=== PATIENT | male | born 1975 | race Caucasian/White ===

== ENCOUNTER 2017-03-28 21:13 | Emergency (ER) | payer SELFPAY ==
[~2017-03-28] VITALS: Ht 175.3 cm; Wt 72.6 kg
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
--- NOTE | 2017-03-28 22:20 | NUR ---
Dr Watts at bedside.
[2017-03-28] MEDS ORDERED: IV NS 0.9% 1,000 ML ONE (22:29)
[2017-03-28] MEDS ORDERED: ONDANSETRON HCL/PF 4 MG/2 ML VIAL ONE (22:29)
[2017-03-28] MEDS ORDERED: IV SET PRIMARY 1 EA INFUS.SET MC ONE (22:29)
[2017-03-28] MEDS ORDERED: ONDANSETRON HCL/PF 4 MG/2 ML VIAL IVP ONE (22:30)
[2017-03-28] MEDS ORDERED: IV NS 0.9% 1,000 ML BAG IV ONE (22:30)
--- NOTE | 2017-03-28 22:30 | NUR ---
STARTED A SALINE LOCK ON THE LAC G20, BLOOD DRAWN AND SENT TO LAB.
[2017-03-28] MEDS ORDERED: HYDROMORPHONE 1 MG/1 ML DISP.SYRIN ONE (22:36)
--- NOTE | 2017-03-28 22:42 | NUR ---
PATIENT GIVEN WITH DILAUDID 1MG IV ONE TIME PER DR SCHULTZ'S VERBAL ORDER.
[2017-03-28 22:51] LABS: BASOPHILS % (AUTO) 0.3 % (0.0-2.0); EOSINOPHILS # (AUTO) 0.2 /CMM (0.0-0.7); EOSINOPHILS % (AUTO) 3.1 % (0.0-6.0); HEMATOCRIT 47 % (39-51); HEMOGLOBIN 15.8 g/dL (13.5-17.5); LYMPHOCYTES # (AUTO) 3.3 /CMM (0.8-4.8); LYMPHOCYTES % (AUTO) 44.2 % (20.0-44.0); MEAN CORPUSCULAR HEMOGLOBIN 31 PG (26.0-33.0); MEAN CORPUSCULAR HGB CONC 34 g/dl (31.0-36.0); MEAN CORPUSCULAR VOLUME 92 fL (80-96); MONOCYTES # (AUTO) 0.5 /CMM (0.1-1.30); MONOCYTES % (AUTO) 7.1 % (2.0-12.0); NEUTROPHILS # (AUTO) 3.4 /CMM (1.8-8.9); NEUTROPHILS % (AUTO) 45.3 % (43.0-81.0); PLATELET COUNT (AUTO) 148 /CMM (150-450); RDW COEFFICIENT OF VARIATION 12.7 (11.5-15.0); RED BLOOD CELL COUNT(AUTO) 5.05 MIL/uL (4.5-6.0); WHITE BLOOD COUNT (AUTO) 7.4 K/uL (4.3-11.0)
[2017-03-28] MEDS ORDERED: HYDROMORPHONE 1 MG/1 ML DISP.SYRIN IV ONE (23:00)
[2017-03-28 23:02] LABS: CALCIUM, SERUM 9.1 mg/dL (8.5-10.1); INR 0.98 (0.87-1.13); POTASSIUM 3.8 mmol/L (3.5-5.1); PROTHROMBIN TIME 10.5 SECS (9.5-12.7)
--- NOTE | 2017-03-29 01:09 | NUR ---
IV removed. Catheter intact and site benign. Pressure and 4x4 applied to site. No bleeding noted. Patient discharged to home in stable condition. Written and verbal after care instructions given. Patient verbalizes understanding of instruction. Patient is ambulatory with a steady gait, and said will be picked up by a friend. Instructed not to drive. No further complaints.
[2017-03-29 01:11] VITALS: BP 112/76
== END 2017-03-29 01:12 | disposition home or self-care (01) ==
LOC: ER 21:15
DX: S09.90XA Unspecified injury of head, initial encounter (principal); S16.1XXA Strain of muscle, fascia and tendon at neck level, initial encounter; R51 Headache; V43.52XA Car driver injured in collision with other type car in traffic accident, initial encounter; Y93.89 Activity, other specified; Y92.488 Other paved roadways as the place of occurrence of the external cause; Y99.8 Other external cause status
CPT/HCPCS: 36415; 70450; 72125; 80048; 85025; 85610; 96361; 96374; 96375; 99285; A4606; J1170; J2405; J7030; Z7610

== ENCOUNTER 2019-04-13 21:11 | Emergency (ER) | payer SELFPAY ==
[~2019-04-13] VITALS: Ht 190.5 cm; Wt 94.8 kg
[2019-04-13 21:19] VITALS: BP 115/70
--- NOTE | 2019-04-13 21:37 | NUR ---
SEEN AND EXAMINED BY DR. FRAGA
--- NOTE | 2019-04-13 22:50 | NUR ---
Patient discharged to home in stable condition. Written and verbal after care instructions given. Patient verbalizes understanding of instruction.
== END 2019-04-13 22:51 | disposition home or self-care (01) ==
LOC: ER 21:24
DX: S70.01XA Contusion of right hip, initial encounter (principal); S00.83XA Contusion of other part of head, initial encounter; S50.311A Abrasion of right elbow, initial encounter; Y08.89XA Assault by other specified means, initial encounter; Y93.89 Activity, other specified; Y92.89 Other specified places as the place of occurrence of the external cause; Y99.8 Other external cause status
CPT/HCPCS: 70450-TC

== ENCOUNTER 2025-03-17 21:21 | Emergency (ER) | payer MEDICAID, OTHER ==
[~2025-03-17] VITALS: Ht 190.5 cm; Wt 113.4 kg
[2025-03-17 22:15] VITALS: BP 149/80; TEMP 98.8
[2025-03-17] MEDS: LIDOCAINE 1% INJ 50 ML MDV IJ ONE (22:31)
[2025-03-17] MEDS ORDERED: CEPH-570 PO (22:47)
[2025-03-17] MEDS ORDERED: ACETAMINOPHEN ES 500 MG TABLET ONE (22:52)
[2025-03-17] MEDS ORDERED: IBUPROFEN 600 MG TABLET ONE (23:13)
[2025-03-17] MEDS ORDERED: CEPHALEXIN MONOHYDRATE 500 MG CAPSULE PO ONE (23:13)
[2025-03-17] MEDS: ACETAMINOPHEN 325 MG TABLET PO ONE (23:13)
[2025-03-17] MEDS: CEPHALEXIN MONOHYDRATE 500 MG CAPSULE PO ONE (23:15)
[2025-03-17] MEDS: IBUPROFEN 600 MG TABLET PO ONE (23:15)
[2025-03-17 23:20] VITALS: O2SAT 98
== END 2025-03-17 23:21 | disposition home or self-care (01) ==
LOC: ER 21:26
DX: L02.818 Cutaneous abscess of other sites (principal); L03.011 Cellulitis of right finger